=== PATIENT | female | born 1985 | race American Indian/Alaskan Native ===

== ENCOUNTER → 2021-11-10 15:49 | Outpatient (CLI) | payer OTHER, SELFPAY ==
[2021-11-10 16:55] LABS: HCG Quantitative /Beta subunit < 2.4 mIU/mL; Prolactin 11.1 ng/mL (3.0-18.6)
[2021-11-10 17:06] LABS: Follicle Stimulating Hormone 6.56 mIU/mL
[2021-11-10 17:18] LABS: Thyroid Stimulating Hormone 0.282 uIU/mL (0.47-4.68)
[2021-11-12 13:36] LABS: Estriol <0.1 ng/mL (.)
[2021-11-13 16:40] LABS: Free T4, Direct Thyroxine 1.66 ng/dL (0.78-2.19)
[2021-11-13 16:57] LABS: Estradiol, Total 58.5 pg/mL
== END ==
PROVIDERS: PCP Registered Nurse; Referring Provider Nurse Practitioner Obstetrics & Gynecology; Visit Provider Nurse Practitioner Obstetrics & Gynecology
DX: N91.1 Secondary amenorrhea (principal)
CPT/HCPCS: 36415; 82670; 82677; 83001; 84146; 84439; 84443; 84702

== ENCOUNTER → 2023-11-26 16:18 | Outpatient (CLI) | payer OTHER, SELFPAY ==
--- NOTE | 2023-11-26 16:20 | DI.RAD.S_ITS ---
PROCEDURE: XR SHOULDER RT MIN 2V INDICATIONS: LS OF RT SHOULDER TECHNIQUE: 3 views of the shoulder were acquired. COMPARISON: None. FINDINGS: Bones: No fractures or dislocations. Mild acromioclavicular joint osteoarthritis is seen. No suspicious bony lesions. Visualized ribs appear intact. Soft tissues: No suspicious soft tissue calcifications. IMPRESSION: Mild acromioclavicular joint osteoarthritis. No shoulder fracture or dislocation. No gross soft tissue abnormalities. Dictated by: Андрей Montenegro M.D. on 11/26/2023 at 17:05 Approved by: Андрей Montenegro M.D. on 11/26/2023 at 17:06
== END ==
PROVIDERS: PCP Registered Nurse; Referring Provider Registered Nurse; Visit Provider Registered Nurse
DX: M19.011 Primary osteoarthritis, right shoulder (principal); M75.41 Impingement syndrome of right shoulder
CPT/HCPCS: 73030

== ENCOUNTER → 2024-05-04 16:39 | Outpatient (CLI) | payer OTHER, SELFPAY ==
[2024-05-04 19:09] LABS: HCG Quantitative /Beta subunit 205.01 mIU/mL
== END ==
LOC: LAB 16:40
PROVIDERS: PCP Registered Nurse; Referring Provider Registered Nurse; Visit Provider Registered Nurse
DX: N91.2 Amenorrhea, unspecified (principal)
CPT/HCPCS: 36415; 84702

== ENCOUNTER 2024-05-20 19:31 | Emergency (ER) | payer OTHER, SELFPAY ==
[2024-05-20 20:05] VITALS: BP 141/81; PULSE 87; RESP 16; TEMP 36.2; O2SAT 100; BMI 38.0
--- NOTE | 2024-05-20 20:15 | EKG_ITS ---
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
[2024-05-20 21:49] LABS: Add Manual Diff / Slide Review NO; Basophils Absolute Auto 100 /uL (0-100); Basophils Percent Auto 0.7 % (0-2); Eosinophils Absolute Auto 100 /uL (0-450); Eosinophils Percent Auto 0.6 % (2-4); Hematocrit 36.5 % (36-46); Hemoglobin 11.5 g/dL (12.0-16.0); Lymphocytes Absolute Auto 2100 /uL (1100-4500); Lymphocytes Percent Auto 14.9 % (25-40); Mean Corpuscular HGB Conc 31.5 % (30-36); Mean Corpuscular Hemoglobin 22.1 PG (26-34); Mean Corpuscular Volume 70.1 fL (80-100); Monocytes Absolute Auto 700 /uL (0-900); Monocytes Percent Auto 5.1 % (3-14); Neutrophils Absolute Auto 11100 /uL (1500-7000); Neutrophils Percent Auto 78.7 % (50-75); Platelet Count 443 X10^3/uL (150-400); Red Cell Distribution Width 16.9 % (11.6-14.8); White Blood Cell Count 14.2 X10^3/uL (4.5-11.0)
[2024-05-20 22:03] LABS: Alanine Aminotransferase 14 IU/L (<35); Albumin 4.2 g/dL (3.5-5.0); Albumin Globulin Ratio 1.3 (1.0-2.8); Alkaline Phosphatase 61 U/L (38-126); Aspartate Aminotransferase 22 IU/L (14-36); Bilirubin Total 0.4 mg/dL (0.2-1.3); Blood Urea Nitrogen 5 mg/dL (7-17); Calcium 9.1 mg/dL (8.4-10.2); Carbon Dioxide 24 mmol/L (22-32); Chloride 104 mmol/L (98-107); Estimated Glomerular Filt Rate > 60 mL/min (>60); Globulin 3.2 g/dL (1.7-4.1); Glucose 109 mg/dL (70-100); HEMOLYSIS < 15 (0-50); Lipase 139 U/L (23-300); Magnesium 1.8 mg/dL (1.6-2.3); Sodium 134 mmol/L (137-145); Total Protein 7.4 g/dL (6.3-8.2)
--- NOTE | 2024-05-20 22:36 | PC.NURSE ---
Pt reports she developed sudden nausea and rapid heart rate this afternoon. She was sitting down and out of blue, felt her heart rate accelerated, was sob, with nausea and wretching. Episode lasted approximately one hour. Fitbit reproted HR 115 at rest. She also reported she took her bp at home and was elevated. Was taken off her her htn meds a couple months ago by pcm after loosing weight, Reports she has been on HTN meds most of her adult hemphill. Pt currently 10 weeks and has not been sleeping well. BM today. Has not been feeling unwell over past day.
[2024-05-20 22:42] VITALS: BP 152/98; PULSE 82; RESP 16; O2SAT 100
[2024-05-20 22:44] LABS: HCG Quantitative /Beta subunit 41480 mIU/mL
--- NOTE | 2024-05-20 23:02 | ED_ITS ---
HPI - General Adult General Chief complaint: Hypertension Stated complaint: heart palpitations, HBP, 10 wks Time Seen by Provider: 05/20/24 22:26 Source: patient Mode of arrival: Ambulatory History of Present Illness HPI narrative: Patient is a 38-year-old female. She was a at approximately 10 weeks EGA. She had a miscarriage earlier this year. She does have a history of high blood pressure. Has been on blood pressure medications in the past but prior to becoming she lost some weight and was able to come off of all blood pressure medicines. She states earlier today she was having episodes where she feels like her heart was beating fast and skipping beats. No chest pain. No lightheadedness. No shortness of breath. She was no abdominal pain, vaginal bleeding, loss of fluid, cramping, urinary symptoms. Lower extremity swelling. She states that she does take her blood pressure occasionally at home and it does range anywhere from the 130 systolic to 150 systolic range. Related Data Home Medications Medication Instructions Recorded Confirmed metformin 500 mg tablet 500 mg PO DAILY 01/12/24 01/12/24 trazodone 100 mg tablet 100 mg PO DAILY 01/12/24 01/12/24 Previous Rx's Medication Instructions Recorded escitalopram oxalate 20 mg tablet 20 mg PO QDAY #90 tabs 04/30/16 levothyroxine 100 mcg tablet 100 mcg PO QAM #90 tabs 04/30/16 omeprazole 40 mg capsule,delayed 40 mg PO QDAY #90 caps 02/23/17 release progesterone micronized 100 mg 100 mg PO BID #60 caps 01/12/24 capsule Allergies Allergy/AdvReac Type Severity Reaction Status Date / Time No Known Drug Allergies Allergy Verified 05/20/24 20:05 Review of Systems Review of Systems ROS Unobtainable: All systems reviewed & are unremarkable except as noted in HPI and below Patient History Surgical History (Updated 10/19/17 @ 05:37 by Conversion Provider) History of third molar tooth extraction Family History (Updated 12/23/14 @ 00:00 by Conversion Provider) Father Age: 67 Hypertension High cholesterol Grandmother Heart disease Hypertension Stroke Grandmother Diabetes mellitus Social History Smoking Status: Never smoker Smoking Status: Never smoker Substance Use Type: does not use Exam Initial Vital Signs Initial Vital Signs: Vital Signs Temperature 97.2 F L 05/20/24 20:05 Pulse Rate 87 05/20/24 20:05 Respiratory Rate 16 05/20/24 20:05 Blood Pressure 141/81 H 05/20/24 20:05 Pulse Oximetry 100 05/20/24 20:05 Oxygen Delivery Method Room Air 05/20/24 20:05 Const General: cooperative, comfortable and No ill appearing [facility] Head: normal to inspection and normocephalic Resp Effort & Inspection: normal respiratory effort Auscultation: clear to auscultation bilaterally Cardio Rate: regular rate Rhythm: regular rhythm GI Inspection: non-distended Skin General: no rashes or lesions noted Neuro General: patient alert, patient awake and moves all extremities Extrem General: normal to inspection Course Orders Ordered: ED Orders 05/20/24 20:03 EKG-12 Lead Stat 05/20/24 21:33 ABO RH Type Stat Complete Blood Count AUTO DIFF Stat Comprehensive Metabolic Panel Stat HCG Quantitative /Beta subunit Stat Lipase Stat Magnesium Stat Vital Signs Vital signs: Vital Signs - 8 hr 05/20/24 22:42 Pulse Rate 82 Respiratory Rate 16 Blood Pressure 152/98 H Pulse Oximetry 100 Oxygen Delivery Method Room Air Medical Decision Making Lab Data Lab results reviewed: Yes I reviewed the patient's lab results. 05/20/24 21:33 05/20/24 21:33 Labs: Lab Results 05/20/24 Range/Units 21:33 WBC 14.2 H (4.5-11.0) X10^3/uL RBC 5.20 (4.0-5.2) X10^6/uL Hgb 11.5 L (12.0-16.0) g/dL Hct 36.5 (36-46) % MCV 70.1 L (80-100) fL MCH 22.1 L (26-34) PG MCHC 31.5 (30-36) % RDW 16.9 H (11.6-14.8) % Plt Count 443 H (150-400) X10^3/uL Neut % (Auto) 78.7 H (50-75) % Lymph % (Auto) 14.9 L (25-40) % [place] % (Auto) 5.1 (3-14) % Eos % (Auto) 0.6 L (2-4) % Baso % (Auto) 0.7 (0-2) % Neut # (Auto) 37238 H (6308-3259) /uL Lymph # (Auto) 2100 (3306-2450) /uL [place] # (Auto) 700 (0-900) /uL Eos # (Auto) 100 (0-450) /uL Baso # (Auto) 100 (0-100) /uL Sodium 134 L (137-145) mmol/L Potassium 4.0 (3.4-5.1) mmol/L Chloride 104 (98-107) mmol/L Carbon Dioxide 24 (22-32) mmol/L BUN 5 L (7-17) mg/dL Creatinine 0.71 (0.52-1.04) mg/dL Estimated GFR > 60 (>60) mL/min BUN/Creatinine Ratio 7.0 (6-22) Glucose 109 H (70-100) mg/dL Calcium 9.1 (8.4-10.2) mg/dL Magnesium 1.8 (1.6-2.3) mg/dL Total Bilirubin 0.4 (0.2-1.3) mg/dL AST 22 (14-36) IU/L ALT 14 (<35) IU/L Alkaline Phosphatase 61 (38-126) U/L Total Protein 7.4 (6.3-8.2) g/dL Albumin 4.2 (3.5-5.0) g/dL Globulin 3.2 (1.7-4.1) g/dL Albumin/Globulin Ratio 1.3 (1.0-2.8) Lipase 139 (23-300) U/L HCG, Quant 49858 mIU/mL Blood Type B Positive Urine Dip Bedside Urine Glucose Negative Bedside Urine Bilirubin - Negative Bedside Urine Ketone - Negative Urine Specific [place] 1.010 Bedside Urine Occult Blood - Negative Bedside Urine pH 6.0 Bedside Urine Protein - Negative Bedside Urine Urobilinogen - Negative Bedside Urine Nitrite - Negative Bedside Urine Leukocytes - Negative Esterase Point of care testing: Urine Dip Bedside Urine Glucose Negative Bedside Urine Bilirubin - Negative Bedside Urine Ketone - Negative Urine Specific [place] 1.010 Bedside Urine Occult Blood - Negative Bedside Urine pH 6.0 Bedside Urine Protein - Negative Bedside Urine Urobilinogen - Negative Bedside Urine Nitrite - Negative Bedside Urine Leukocytes - Negative Esterase ECG Data Attestation: I personally reviewed and interpreted this ECG as follows: Interpretation: Sinus rhythm Ventricular rate 93 Normal axis Normal QRS Normal QTC No ST T wave changes MDM Narrative Medical decision making narrative: Patient was approximately 10 weeks . She was not having an abdominal pain, loss of fluid, cramping, urinary symptoms. No fevers. She has a baseline history of hypertension and has been hypertensive since arrival here in the ER however she has taken her blood pressure at home over the past couple days and it has been into the 130 systolic range. I did talk with her about her high blood pressure. I recommended that she take her blood pressure at home on a regular basis so that she can talk with the the her OB provider or her primary doctor as she may need to be on blood pressure medications. Patient is less than 20 weeks so would not meet criteria for preeclampsia. Her labs are unremarkable except for a slight leukocytosis without specific source of infection found. She was sinus rhythm on her EKG however when I was in the room she did have an episode of frequent PVCs. He does state that she was having some symptoms during this time that did correspond somewhat to the symptoms she was having earlier today. I discussed PVCs with her. Recommended that she talk with her primary doctor or her OB provider about a Holter monitor specifically if her symptoms persist. She was given return precautions and follow-up instructions. She expressed understanding and agreement with plan. Discharge Plan Departure Patient Disposition: Home Clinical Impression: Palpitations, Hypertension, Instructions: DI for High Blood Pressure, DI for Palpitations Activity Restrictions/Additional Instructions: Continue with the plan of following up with your OB provider. Continue all of your medications as directed. I do recommend that you take your blood pressure at home like we discussed. Return to the emergency department for new or worsening symptoms. Prescriptions: No Action levothyroxine 100 MCG tablet 100 mcg PO QAM Qty: 90 11RF escitalopram oxalate 20 MG tablet 20 mg PO QDAY Qty: 90 1RF omeprazole 40 MG capsule,delayed release(DR/EC) 40 mg PO QDAY Qty: 90 3RF metformin 500 mg tablet 500 mg PO DAILY trazodone 100 mg tablet 100 mg PO DAILY progesterone micronized 100 mg capsule 100 mg PO BID Qty: 60 6RF Rx Instructions: Twice a day after ovulation until next menses or 12 weeks Referrals: Randee Mcclure ARNP [Primary Care Provider] - Stand Alone Forms: Patient Portal/API/Survey
== END 2024-05-20 23:13 | disposition home or self-care (01) ==
PROVIDERS: Emergency Provider Emergency Medicine; PCP Registered Nurse
DX: O16.1 Unspecified maternal hypertension, first trimester (principal); R00.2 Palpitations; O26.891 Other specified pregnancy related conditions, first trimester; Z3A.10 10 weeks gestation of pregnancy
CPT/HCPCS: 36415; 80053; 81003; 83690; 83735; 84702; 85025; 86900; 86901; 93005; 99283; 99284

== ENCOUNTER 2024-05-28 10:44 | Emergency (ER) | payer OTHER, SELFPAY ==
[2024-05-28] VITALS (11 sets, daily range): BP systolic 134–183; BP diastolic 81–100; PULSE 83–114; RESP 20; TEMP 37.1; O2SAT 99–100; BMI 32.8
[2024-05-28 11:13] LABS: Add Manual Diff / Slide Review NO; Basophils Absolute Auto 200 /uL (0-100); Basophils Percent Auto 1.1 % (0-2); Eosinophils Absolute Auto 100 /uL (0-450); Eosinophils Percent Auto 0.5 % (2-4); Hematocrit 39.4 % (36-46); Hemoglobin 12.3 g/dL (12.0-16.0); Lymphocytes Absolute Auto 1600 /uL (1100-4500); Lymphocytes Percent Auto 9.8 % (25-40); Mean Corpuscular HGB Conc 31.3 % (30-36); Mean Corpuscular Hemoglobin 22.2 PG (26-34); Mean Corpuscular Volume 70.9 fL (80-100); Monocytes Absolute Auto 900 /uL (0-900); Monocytes Percent Auto 5.3 % (3-14); Neutrophils Absolute Auto 13400 /uL (1500-7000); Neutrophils Percent Auto 83.3 % (50-75); Platelet Count 541 X10^3/uL (150-400); Red Blood Cell Count 5.56 X10^6/uL (4.0-5.2); Red Cell Distribution Width 17.6 % (11.6-14.8); White Blood Cell Count 16.1 X10^3/uL (4.5-11.0)
--- NOTE | 2024-05-28 11:14 | EKG_ITS ---
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
[2024-05-28 11:19] LABS: Prothrombin Time 11.7 SECONDS (9.4-12.5)
[2024-05-28 11:22] LABS: Ictotest Urine Negative (Negative)
[2024-05-28 11:23] LABS: Alanine Aminotransferase 20 IU/L (<35); Albumin 4.7 g/dL (3.5-5.0); Albumin Globulin Ratio 1.3 (1.0-2.8); Alkaline Phosphatase 69 U/L (38-126); Aspartate Aminotransferase 28 IU/L (14-36); BUN Creatinine Ratio 9.1 (6-22); Bilirubin Total 0.6 mg/dL (0.2-1.3); Blood Urea Nitrogen 7 mg/dL (7-17); Calcium 9.9 mg/dL (8.4-10.2); Carbon Dioxide 25 mmol/L (22-32); Chloride 99 mmol/L (98-107); Estimated Glomerular Filt Rate > 60 mL/min (>60); Globulin 3.6 g/dL (1.7-4.1); Glucose 109 mg/dL (70-100); HEMOLYSIS < 15 (0-50); Lipase 115 U/L (23-300); Potassium 3.6 mmol/L (3.4-5.1); Sodium 134 mmol/L (137-145); Total Protein 8.3 g/dL (6.3-8.2)
[2024-05-28] MEDS: ONDANSETRON 4 MG/2 ML INJ IV (11:23)
--- NOTE | 2024-05-28 11:24 | ED.NAVMDI ---
HPI - Nausea/Vomiting/Diarrhea General Chief complaint: Nausea/Vomiting/Diarrhea Stated complaint: 10wks , persistent vomiting Time Seen by Provider: 05/28/24 11:07 Source: patient, RN notes reviewed and old records reviewed Mode of arrival: Family Vehicle Limitations: no limitations History of Present Illness HPI Narrative: 38-year-old female approximately 10 weeks per patient presents with complaint of vomiting all week and hypertension. Patient states she was here on the 30 for heart palpitations and high blood pressure. States she has had occasional palpitations and noted that she will feel little short of breath when that is happening. She also notes she has been vomiting all week we will be quite nauseated. She has tried Zofran had a let dose at 5:00 a.m. this morning. But about 9 was trying to eat and threw up everything that she would eaten this morning. She states has a little bit of a headache, she has been throwing up enough that is sometimes her muscles feel spasming and she feels tight in her neck. She denies any chest pain or active shortness of breath. No abdominal back or flank pain. Has been little bit constipated but notes she has not been eating much and has been taking Zofran. Denies any new urinary symptoms no dysuria or urgency. She does note a little bit of frequency. Denies any pelvic pain. No vaginal spotting or bleeding. Patient notes she was treated for hypertension in the past but lost weight and was not requiring medication. She is on levothyroxine, metformin, duloxetine and BuSpar. Patient has been taking vitamin B6 for nausea with . States no prior surgeries. No known drug allergies. No tobacco, alcohol or recreational drugs. Did follow up this week primary care visit and was told her blood pressure was slightly elevated but did not require starting a medication. She has follow up appointment tomorrow with consulting technical manager with Dr. Gaines to establish care. Related Data Home Medications Medication Instructions Recorded Confirmed metformin 500 mg tablet 500 mg PO DAILY 01/12/24 05/24/24 aspirin 81 mg tablet,delayed 81 mg PO DAILY 05/24/24 05/24/24 release buspirone 15 mg tablet 15 mg PO BID 05/24/24 05/24/24 doxylamine 10 mg-pyridoxine (vit 1 tab PO BID PRN 05/24/24 05/24/24 B6) 10 mg tablet,delayed release (Diclegis) duloxetine 60 mg capsule,delayed 60 mg PO DAILY 05/24/24 05/24/24 release levothyroxine 75 mcg tablet 75 mcg PO DAILY 05/24/24 05/24/24 Previous Rx's Medication Instructions Recorded omeprazole 40 mg capsule,delayed 40 mg PO QDAY #90 caps 02/23/17 release progesterone micronized 100 mg 100 mg PO BID #60 caps 01/12/24 capsule ondansetron 4 mg disintegrating 4 mg PO Q6H PRN nausea and 05/26/24 tablet vomiting #30 tabs Allergies Allergy/AdvReac Type Severity Reaction Status Date / Time No Known Drug Allergies Allergy Verified 05/24/24 14:07 Review of Systems Review of Systems ROS Unobtainable: All systems reviewed & are unremarkable except as noted in HPI and below Patient History Medical History Asthma Low serum progesterone Hypertension Surgical History History of third molar tooth extraction Family History Father Age: 67 Hypertension High cholesterol Cancer Family estrangement Grandmother Heart disease Hypertension Stroke Alzheimer's dementia Alcoholism Grandmother Diabetes mellitus Mother Diabetes mellitus Fibromyalgia Osteoarthritis Grandfather Osteoarthritis Alcoholism Brother Klinefelter syndrome Uncle Hyperlipidemia Hypertension Uncle Sturge-Loya syndrome Social History marital status: number of children: 1 (recently adopted infant daughter) household members: spouse and children lives independently: Yes caregiver/support person: Yes housing: house pets and animals: Yes (dogs) education level: college (some college) occupational status: employed (works from home) current occupational exposures/hazards: No special abisai needs: No travel history: over 6 months ago seatbelt use: always water heater temp set < 120 deg: Yes working smoke detector in home: Yes fire extinguisher in home: Yes carbon monox detector in home: Yes firearms in home: Yes firearms unloaded and locked: Yes do you feel safe at home: Yes Smoking Status: Never smoker second hand exposure: No alcohol intake: former (rarely when not ) substance use type: does not use during the past year weight has: decreased > 10 lbs (intentional w/ meds) well-balanced diet: rarely or never daily servings fruits/ve-1 caffeine: Yes (discussed, asked pt to stop drinking [place] and other energy drinks) Type(s) of exercise: walking Smoking Status: Never smoker Exam Narrative Exam Narrative: GENERAL: Alert and oriented x three, well-appearing female in mild distress. HEENT: Head normocephalic, atraumatic, EOMI, pupils reactive, face symmetric, moist mucous membranes NECK: Supple, full range of motion CARDIOVASCULAR: Regular rate and rhythm without murmurs, rubs or gallops. No JVD. No edema bilaterally. RESPIRATORY: Breath sounds equal bilaterally, no wheezes rales or rhonchi. ABDOMEN: Soft, nontender. Normoactive bowel sounds all 4 quadrants. No guarding or rebound, rigidity, no mass : No CVA tenderness EXTREMITIES: Normal range of motion, no clubbing or edema. Neurovascularly intact NEUROLOGICAL: Cranial nerves II through XII grossly intact. Moving all extremities SKIN: Warm, dry, no petechiae, no rashes or lesions. Initial Vital Signs Initial Vital Signs: Vital Signs Pulse Oximetry 100 05/28/24 10:51 Course Orders Ordered: ED Orders 05/28/24 10:48 Ictotest Urine Stat 05/28/24 10:57 EKG-12 Lead Stat 05/28/24 11:00 Complete Blood Count AUTO DIFF Stat Comprehensive Metabolic Panel Stat HCG Quantitative /Beta subunit Stat Lipase Stat Prothrombin Time INR Stat 05/28/24 11:39 US OB <= 14 weeks fetus Stat Discontinued Medications Sodium Chloride (Normal Saline 0.9%) 500 mls @ 1,000 mls/hr IV BOLUS ONE Stop: 05/28/24 12:08 Last Infusion: 05/28/24 12:21 Dose: Infused Documented By: Admin: 05/28/24 11:44 Dose: 1,000 mls/hr Documented By: Ondansetron HCl (Ondansetron 4 Mg/2 Ml Inj) 4 mg IV NOW PRN PRN Reason: Nausea And Vomiting Last Admin: 05/28/24 11:23 Dose: 4 mg Documented By: Ondansetron HCl (Ondansetron 4 Mg Odt) 4 mg PO NOW PRN PRN Reason: Nausea And Vomiting Vital Signs Vital signs: Vital Signs - 8 hr 05/28/24 10:51 05/28/24 10:52 05/28/24 10:52 Temperature Pulse Rate 114 H Respiratory Rate Blood Pressure 183/100 H Pulse Oximetry 100 100 Oxygen Delivery Method 05/28/24 10:55 05/28/24 11:00 05/28/24 11:04 Temperature 98.8 F Pulse Rate 110 H 99 H Respiratory Rate 20 Blood Pressure 180/100 H 134/85 Pulse Oximetry 100 100 Oxygen Delivery Method Room Air 05/28/24 11:04 05/28/24 11:29 05/28/24 11:30 Temperature Pulse Rate 101 H 100 H Respiratory Rate Blood Pressure 151/88 H Pulse Oximetry 100 99 Oxygen Delivery Method 05/28/24 11:30 05/28/24 12:00 05/28/24 12:00 Temperature Pulse Rate 94 H 83 Respiratory Rate Blood Pressure 147/81 H Pulse Oximetry 100 99 Oxygen Delivery Method 05/28/24 13:05 05/28/24 13:30 05/28/24 14:00 Temperature Pulse Rate 96 H 91 H 93 H Respiratory Rate Blood Pressure 147/81 H Pulse Oximetry 100 100 100 Oxygen Delivery Method MDM - Nausea/Vomiting/Diarrhea Lab Data 05/28/24 11:00 05/28/24 11:00 Labs: Lab Results 05/28/24 05/28/24 Range/Units 10:48 11:00 WBC 16.1 H (4.5-11.0) X10^3/uL RBC 5.56 H (4.0-5.2) X10^6/uL Hgb 12.3 (12.0-16.0) g/dL Hct 39.4 (36-46) % MCV 70.9 L (80-100) fL MCH 22.2 L (26-34) PG MCHC 31.3 (30-36) % RDW 17.6 H (11.6-14.8) % Plt Count 541 H (150-400) X10^3/uL Neut % (Auto) 83.3 H (50-75) % Lymph % (Auto) 9.8 L (25-40) % [place] % (Auto) 5.3 (3-14) % Eos % (Auto) 0.5 L (2-4) % Baso % (Auto) 1.1 (0-2) % Neut # (Auto) 81072 H (7391-5016) /uL Lymph # (Auto) 1600 (8677-0413) /uL [place] # (Auto) 900 (0-900) /uL Eos # (Auto) 100 (0-450) /uL Baso # (Auto) 200 H (0-100) /uL PT 11.7 (9.4-12.5) SECONDS INR 1.0 (0.9-1.3) Sodium 134 L (137-145) mmol/L Potassium 3.6 (3.4-5.1) mmol/L Chloride 99 (98-107) mmol/L Carbon Dioxide 25 (22-32) mmol/L BUN 7 (7-17) mg/dL Creatinine 0.77 (0.52-1.04) mg/dL Estimated GFR > 60 (>60) mL/min BUN/Creatinine Ratio 9.1 (6-22) Glucose 109 H (70-100) mg/dL Calcium 9.9 (8.4-10.2) mg/dL Total Bilirubin 0.6 (0.2-1.3) mg/dL AST 28 (14-36) IU/L ALT 20 (<35) IU/L Alkaline Phosphatase 69 (38-126) U/L Total Protein 8.3 H (6.3-8.2) g/dL Albumin 4.7 (3.5-5.0) g/dL Globulin 3.6 (1.7-4.1) g/dL Albumin/Globulin Ratio 1.3 (1.0-2.8) Lipase 115 (23-300) U/L HCG, Quant 324543 mIU/mL Ur Bilirubin Confirm Negative (Negative) Point of Care Testing Test Results Positive Urine Dip Bedside Urine Glucose Negative Bedside Urine Bilirubin + 1 Bedside Urine Ketone +/- 5 Urine Specific [place] 1.020 Bedside Urine Occult Blood - Negative Bedside Urine pH 6.0 Bedside Urine Protein - Negative Bedside Urine Urobilinogen - Negative Bedside Urine Nitrite - Negative Bedside Urine Leukocytes - Negative Esterase Imaging Data US - OB: Radiologist's Impression: Close Ultrasound (Signed) Jesus Francisco - 05/28/24 Shoulder X-Ray (Signed) Андрей Montenegro - 11/26/[address] [place] [address] Ultrasound Report Signed Patient: Alba Lowe MR#: [id number] : 1985 Acct:[id number] Age/Sex: 38 / F Date of Service: 05/28/24 Loc: ED Accession Number: [id number] Procedure: US OB <= 14 weeks fetus Ordering Provider: Nicole Hernandez D.O. PROCEDURE: US OB <= 14 WEEKS FETUS INDICATIONS: vomiting, OUTSIDE/PRIOR DATING DATA: Last menstrual period (LMP): 03/12/2024. LMP-based estimated date of delivery (LAVELL): 12/17/2024. First dating scan (date and location): 05/28/2024. Estimated date of delivery (LAVELL) from first dating scan: 01/07/2025. TECHNIQUE: Real-time scanning was performed of the fetus and maternal pelvic organs, with image documentation. Endovaginal scanning was also performed to better visualize the fetus and maternal ovaries. COMPARISON: None. FINDINGS: Embryo: [place]-rump length 1.6 cm corresponds with an 8 week 0 day gestation. EGA by dates 11 week 0 day gestation. Heart rate: 162 Maternal organs: Ovaries right corpus luteum cyst. IMPRESSION: Single live intrauterine corresponds with an 8 week 0 day gestation by ultrasound and 11 week 0 day by dates Approved by: Jesus Francisco M.D. on 05/28/2024 at 12:50 ECG Data Attestation: I personally reviewed and interpreted this ECG as follows: Prior ECG tracings: available for review Interpretation: Normal sinus rhythm rate of 100 MO 142 QRS 80 QTC of [address] elevation or depression noted. Patient has prior from 05/20/2024. MDM Narrative Medical decision making narrative: 38-year-old female who is approximately 10-11 weeks by dates. Patient presents with nausea vomiting during her . Notes she was hypertensive at home as well. Patient was quite hypertensive initially improved to 150/88 recheck when I evaluated the patient. Labs show white count of 16.1 platelets of 541 with a hemoglobin of 12.3. Patient was white count of 14 on the 20 of May with platelets of 443 no priors for comparison. Patient has a little bit microcytic. Predominance of neutrophils on both. INR is 1. Sodium is 134 potassium 3.6 chloride 99 CO2 is 25 with a BUN of 7 creatinine of 0.77 glucose of 109 calcium is 9.9 bilirubin is 0.6 with a AST 20 and ALT 20 alk-phos is 69 and a lipase of 115. Total protein is 8.3. HCG is 222693 EKG shows no acute change Point of care urine, 1+ bilirubin, positive ketones negative for blood negative for nitrates and leukocyte esterase. Urine is positive OB ultrasound single live intrauterine 8 weeks 0 days by ultrasound 11 weeks by dates. Heart rates 162. Patient received 4 mg Zofran, 500 mL normal saline. Patient tolerating fluids. Had oral challenge was solids. Patient's blood pressure improved here in the department without any interventions. Patient is tolerating orals in the department. Has a appointment tomorrow with OBGYN. Discussed can try gian to see if that is helpful as well. She was already taking B6/doxylamine and has Zofran at home. Discharge Plan Departure Patient Disposition: Home Clinical Impression: Vomiting during Activity Restrictions/Additional Instructions: Follow up with your appointment tomorrow with Dr. Gaines. Continue your current medications as prescribed. Please return for fevers, new or worsening chest pain or shortness of breath, intractable vomiting, lightheadedness or passing out, new abdominal pain, vaginal bleeding or spotting or other new or concerning changes. Prescriptions: No Action omeprazole 40 MG capsule,delayed release(DR/EC) 40 mg PO QDAY Qty: 90 3RF ondansetron 4 mg tablet,disintegrating 4 mg PO Q6H PRN (Reason: nausea and vomiting) Qty: 30 0RF duloxetine 60 mg capsule,delayed release(DR/EC) 60 mg PO DAILY aspirin 81 mg tablet,delayed release (DR/EC) 81 mg PO DAILY buspirone 15 mg tablet 15 mg PO BID doxylamine-pyridoxine (vit B6) [Diclegis] 10-10 mg tablet,delayed release (DR/EC) 1 tab PO BID PRN levothyroxine 75 mcg tablet 75 mcg PO DAILY metformin 500 mg tablet 500 mg PO DAILY progesterone micronized 100 mg capsule 100 mg PO BID Qty: 60 6RF Rx Instructions: Twice a day after ovulation until next menses or 12 weeks Referrals: Randee Mcclure ARNP [Primary Care Provider] - Stand Alone Forms: Patient Portal/API/Survey, Work Release Note
--- NOTE | 2024-05-28 11:39 | DI.US.S_ITS ---
PROCEDURE: US OB <= 14 WEEKS FETUS INDICATIONS: vomiting, OUTSIDE/PRIOR DATING DATA: Last menstrual period (LMP): 03/12/2024. LMP-based estimated date of delivery (LAVELL): 12/17/2024. First dating scan (date and location): 05/28/2024. Estimated date of delivery (LAVELL) from first dating scan: 01/07/2025. TECHNIQUE: Real-time scanning was performed of the fetus and maternal pelvic organs, with image documentation. Endovaginal scanning was also performed to better visualize the fetus and maternal ovaries. COMPARISON: None. FINDINGS: Embryo: [place]-rump length 1.6 cm corresponds with an 8 week 0 day gestation. EGA by dates 11 week 0 day gestation. Heart rate: 162 Maternal organs: Ovaries right corpus luteum cyst. IMPRESSION: Single live intrauterine corresponds with an 8 week 0 day gestation by ultrasound and 11 week 0 day by dates Approved by: Jesus Francisco M.D. on 05/28/2024 at 12:50
[2024-05-28] MEDS: SODIUM CHLORIDE 0.9% 500 ML 1000 ML IV (11:44)
[2024-05-28 12:39] LABS: HCG Quantitative /Beta subunit 103160 mIU/mL
== END 2024-05-28 14:24 | disposition home or self-care (01) ==
PROVIDERS: Emergency Provider Emergency Medicine; PCP Registered Nurse
DX: O21.9 Vomiting of pregnancy, unspecified (principal); O16.1 Unspecified maternal hypertension, first trimester; Z3A.11 11 weeks gestation of pregnancy
CPT/HCPCS: 36415; 76801; 80053; 81003; 81025; 83690; 84702; 85025; 85610; 93005; 93010; 96361; 96374; 99284; J2405

== ENCOUNTER 2024-06-03 11:46 | Emergency (ER) | payer OTHER, SELFPAY ==
[2024-06-03 11:52] VITALS: BP 165/98; PULSE 94; RESP 16; TEMP 36.1; O2SAT 98; BMI 36.8
[2024-06-03] MEDS: SODIUM CHLORIDE 0.9% 500 ML 1000 ML IV (14:13)
[2024-06-03 14:29] LABS: Add Manual Diff / Slide Review NO; Basophils Absolute Auto 100 /uL (0-100); Basophils Percent Auto 0.3 % (0-2); Eosinophils Absolute Auto 100 /uL (0-450); Eosinophils Percent Auto 0.4 % (2-4); Hematocrit 37.7 % (36-46); Hemoglobin 11.9 g/dL (12.0-16.0); Lymphocytes Absolute Auto 2200 /uL (1100-4500); Lymphocytes Percent Auto 14.1 % (25-40); Mean Corpuscular HGB Conc 31.5 % (30-36); Mean Corpuscular Hemoglobin 22.5 PG (26-34); Mean Corpuscular Volume 71.3 fL (80-100); Monocytes Absolute Auto 600 /uL (0-900); Neutrophils Absolute Auto 12700 /uL (1500-7000); Neutrophils Percent Auto 81.2 % (50-75); Platelet Count 498 X10^3/uL (150-400); Red Blood Cell Count 5.28 X10^6/uL (4.0-5.2); White Blood Cell Count 15.6 X10^3/uL (4.5-11.0)
--- NOTE | 2024-06-03 14:41 | ED.PREGNANCY ---
HPI - <Lisa Otero PA-C - Last Filed: 06/03/24 20:38> General Chief complaint: Abdominal Pain Stated complaint: 9 wks no bm for 1 wk, nausea, vomiting Time Seen by Provider: 06/03/24 13:51 Source: patient Mode of arrival: Ambulatory History of Present Illness HPI Narrative: 38-year-old woman who is 9 weeks , presents with concern for constipation for the past week. She has been dealing with a lot of nausea and vomiting for over a few weeks in this and has been taking Zofran for this as well as pyridoxine. In the past week she has been drinking a lot of electrolyte solutions and has had some trouble keeping fluids down; she has been eating less as well as this seems to trigger nausea and vomiting. She states it has been at least a week since she has had any bowel movement. She does state that she feels there is ?something there? and says that she does feel for the last few days that there is rectal pressure and she has having an urge to have a bowel movement but it has not been able to. She has tried a few home enemas, tried MiraLax yesterday for the 1st time, and in the last 3 days she has tried multiple suppositories. She has tried to increase her fluid intake but it has been difficult with her nausea and vomiting. She also endorses some upper abdominal discomfort. She endorses increased problems with heartburn and reflux in the last few weeks as well states that she had to stop taking her omeprazole due to and has transitioned over to famotidine. She denies any urinary symptoms such as urgency, frequency, pain with urination. She states she has had some cramping sensations in her upper body shoulders and arms recently. Denies fevers, chills, or other symptoms. Related Data Home Medications Medication Instructions Recorded Confirmed metformin 500 mg tablet 500 mg PO DAILY 01/12/24 05/29/24 aspirin 81 mg tablet,delayed 81 mg PO DAILY 05/24/24 05/29/24 release buspirone 15 mg tablet 15 mg PO BID 05/24/24 05/29/24 duloxetine 60 mg capsule,delayed 60 mg PO DAILY 05/24/24 05/29/24 release levothyroxine 75 mcg tablet 75 mcg PO DAILY 05/24/24 05/29/24 Previous Rx's Medication Instructions Recorded omeprazole 40 mg capsule,delayed 40 mg PO QDAY #90 caps 02/23/17 release ondansetron 4 mg disintegrating 4 mg PO Q6H PRN nausea and 05/26/24 tablet vomiting #30 tabs promethazine 12.5 mg tablet 12.5 mg PO Q4-6H PRN nausea and 06/01/24 vomiting #30 tabs labetalol 100 mg tablet 100 mg PO BID #60 tabs 06/08/24 doxylamine 10 mg-pyridoxine (vit 1 tab PO BID #30 tabs 06/12/24 B6) 10 mg tablet,delayed release (Diclegis) progesterone micronized 100 mg 100 mg PO BID #60 caps 06/12/24 capsule Allergies Allergy/AdvReac Type Severity Reaction Status Date / Time No Known Drug Allergies Allergy Verified 06/12/24 10:59 Review of Systems <Lisa Otero PA-C - Last Filed: 06/03/24 20:38> Review of Systems Narrative: See HPI Exam <Lisa Otero PA-C - Last Filed: 06/03/24 20:38> Narrative Exam Narrative: GENERAL: [38] year old patient appears stated age. Well-developed patient, in mild distress. HEAD: Atraumatic. Normocephalic. EYES: Pupils equal round and reactive. Extraocular motions intact. No scleral icterus. No injection or drainage. ENT: Nose without bleeding, purulent drainage. Airway patent. NECK: Trachea midline. Non tender CARDIOVASCULAR: Regular rate and rhythm without murmurs, gallops, or rubs. RESPIRATORY: Clear to auscultation. Breath sounds equal bilaterally. No wheezes, rales, or rhonchi. GASTROINTESTINAL: Abdomen soft, it was right upper quadrant and left upper quadrant tenderness. Negative Jay's sign. Negative McBurney's point tenderness. Negative Rovsing. Mild discomfort with palpation over the low abdomen as well. No CVA tenderness, otherwise Non-tender, nondistended. EXTREMITIES: No edema or joint tenderness. BACK: Nontender without deformity or crepitance. No flank tenderness. NEURO: AOx3. SKIN: No rash or erythema of visible areas Initial Vital Signs Initial Vital Signs: Vital Signs Temperature 97.0 F L 06/03/24 11:52 Pulse Rate 94 H 06/03/24 11:52 Respiratory Rate 16 06/03/24 11:52 Blood Pressure 165/98 H 06/03/24 11:52 Pulse Oximetry 98 06/03/24 11:52 Oxygen Delivery Method Room Air 06/03/24 11:52 <Nicole Hernandez DO - Last Filed: 06/19/24 04:18> Initial Vital Signs Initial Vital Signs: Vital Signs Temperature 97.0 F L 06/03/24 11:52 Pulse Rate 94 H 06/03/24 11:52 Respiratory Rate 16 06/03/24 11:52 Blood Pressure 165/98 H 06/03/24 11:52 Pulse Oximetry 98 06/03/24 11:52 Oxygen Delivery Method Room Air 06/03/24 11:52 Course <Lisa Otero PA-C - Last Filed: 06/03/24 20:38> Orders Ordered: Discontinued Medications Acetaminophen (Acetaminophen 325 Mg Tablet) 650 mg PO NOW ONE Stop: 06/03/24 16:51 Last Admin: 06/03/24 16:56 Dose: 650 mg Documented By: GALEN Sodium Chloride (Normal Saline 0.9%) 500 mls @ 1,000 mls/hr IV BOLUS ONE Stop: 06/03/24 14:20 Last Infusion: 06/03/24 15:11 Dose: Infused Documented By: Admin: 06/03/24 14:13 Dose: 1,000 mls/hr Documented By: JAMMIE Sodium Chloride (Normal Saline 0.9%) 1,000 mls @ 1,000 mls/hr IV BOLUS ONE Stop: 06/03/24 16:07 Last Infusion: 06/03/24 17:06 Dose: Infused Documented By: Admin: 06/03/24 15:12 Dose: 1,000 mls/hr Documented By: SB Lactulose (Lactulose 20 Gm/30 Ml Solution) 20 gm PO NOW ONE Stop: 06/03/24 17:23 Last Admin: 06/03/24 17:48 Dose: 20 gm Documented By: UBALDO Vital Signs Vital signs: Vital Signs - 8 hr 06/03/24 18:01 Temperature 97.5 F L Pulse Rate 98 H Respiratory Rate 16 Blood Pressure 155/105 H Pulse Oximetry 100 Oxygen Delivery Method Room Air <Nicole Hernandez DO - Last Filed: 06/19/24 04:18> Orders Ordered: Discontinued Medications Acetaminophen (Acetaminophen 325 Mg Tablet) 650 mg PO NOW ONE Stop: 06/03/24 16:51 Last Admin: 06/03/24 16:56 Dose: 650 mg Documented By: SPF Sodium Chloride (Normal Saline 0.9%) 500 mls @ 1,000 mls/hr IV BOLUS ONE Stop: 06/03/24 14:20 Last Infusion: 06/03/24 15:11 Dose: Infused Documented By: Admin: 06/03/24 14:13 Dose: 1,000 mls/hr Documented By: JAMMIE Sodium Chloride (Normal Saline 0.9%) 1,000 mls @ 1,000 mls/hr IV BOLUS ONE Stop: 06/03/24 16:07 Last Infusion: 06/03/24 17:06 Dose: Infused Documented By: Admin: 06/03/24 15:12 Dose: 1,000 mls/hr Documented By: SB Lactulose (Lactulose 20 Gm/30 Ml Solution) 20 gm PO NOW ONE Stop: 06/03/24 17:23 Last Admin: 06/03/24 17:48 Dose: 20 gm Documented By: SB Vital Signs Vital signs: Vital Signs - 8 hr 06/03/24 18:01 Temperature 97.5 F L Pulse Rate 98 H Respiratory Rate 16 Blood Pressure 155/105 H Pulse Oximetry 100 Oxygen Delivery Method Room Air MDM - OB/Uterine Contractions <Lisa Otero PA-C - Last Filed: 06/03/24 20:38> Differential Diagnosis Differential diagnosis: Likely other (Constipation and 1st trimester , right upper quadrant pain, elevated bilirubin) Lab Data Attestation: I reviewed the patient's lab results. 06/03/24 14:10 06/03/24 16:37 Labs: Lab Results 06/03/24 06/03/24 06/03/24 Range/Units 14:10 14:10 15:30 WBC 15.6 H (4.5-11.0) X10^3/uL RBC 5.28 H (4.0-5.2) X10^6/uL Hgb 11.9 L (12.0-16.0) g/dL Hct 37.7 (36-46) % MCV 71.3 L (80-100) fL MCH 22.5 L (26-34) PG MCHC 31.5 (30-36) % RDW 18.0 H (11.6-14.8) % Plt Count 498 H (150-400) X10^3/uL Neut % (Auto) 81.2 H (50-75) % Lymph % (Auto) 14.1 L (25-40) % Maverick % (Auto) 4.0 (3-14) % Eos % (Auto) 0.4 L (2-4) % Baso % (Auto) 0.3 (0-2) % Neut # (Auto) 43236 H (3157-9759) /uL Lymph # (Auto) 2200 (4947-4636) /uL Maverick # (Auto) 600 (0-900) /uL Eos # (Auto) 100 (0-450) /uL Baso # (Auto) 100 (0-100) /uL Sodium 131 L (137-145) mmol/L Potassium 5.8 H D (3.4-5.1) mmol/L Chloride 100 (98-107) mmol/L Carbon Dioxide 24 (22-32) mmol/L BUN 5 L (7-17) mg/dL Creatinine 0.60 (0.52-1.04) mg/dL Estimated GFR > 60 (>60) mL/min BUN/Creatinine Ratio 8.3 (6-22) Glucose 89 (70-100) mg/dL Calcium 9.1 (8.4-10.2) mg/dL Total Bilirubin 1.5 H (0.2-1.3) mg/dL AST 84 H (14-36) IU/L ALT 26 (<35) IU/L Alkaline Phosphatase 35 L (38-126) U/L Total Protein 8.5 H (6.3-8.2) g/dL Albumin 4.7 (3.5-5.0) g/dL Globulin 3.8 (1.7-4.1) g/dL Albumin/Globulin Ratio 1.2 (1.0-2.8) Lipase 119 Cancelled (23-300) U/L Urine RBC None seen (0-5/HPF) Urine WBC None seen (0-5/HPF) Ur Squamous Epith Cells None seen (0-5/HPF) Urine Bacteria None seen (None) Ur Culture Indicated? Cult not indicated Vol Urine Centrifuged 10ml (spun) 06/03/24 Range/Units 16:37 WBC (4.5-11.0) X10^3/uL RBC (4.0-5.2) X10^6/uL Hgb (12.0-16.0) g/dL Hct (36-46) % MCV (80-100) fL MCH (26-34) PG MCHC (30-36) % RDW (11.6-14.8) % Plt Count (150-400) X10^3/uL Neut % (Auto) (50-75) % Lymph % (Auto) (25-40) % Maverick % (Auto) (3-14) % Eos % (Auto) (2-4) % Baso % (Auto) (0-2) % Neut # (Auto) (0090-8510) /uL Lymph # (Auto) (8128-9702) /uL Maverick # (Auto) (0-900) /uL Eos # (Auto) (0-450) /uL Baso # (Auto) (0-100) /uL Sodium 131 L (137-145) mmol/L Potassium 3.8 D (3.4-5.1) mmol/L Chloride 102 (98-107) mmol/L Carbon Dioxide 27 (22-32) mmol/L BUN 4 L (7-17) mg/dL Creatinine 0.68 (0.52-1.04) mg/dL Estimated GFR > 60 (>60) mL/min BUN/Creatinine Ratio 5.9 L (6-22) Glucose 79 (70-100) mg/dL Calcium 8.5 (8.4-10.2) mg/dL Total Bilirubin (0.2-1.3) mg/dL AST (14-36) IU/L ALT (<35) IU/L Alkaline Phosphatase (38-126) U/L Total Protein (6.3-8.2) g/dL Albumin (3.5-5.0) g/dL Globulin (1.7-4.1) g/dL Albumin/Globulin Ratio (1.0-2.8) Lipase (23-300) U/L Urine RBC (0-5/HPF) Urine WBC (0-5/HPF) Ur Squamous Epith Cells (0-5/HPF) Urine Bacteria (None) Ur Culture Indicated? Vol Urine Centrifuged Urine Dip Bedside Urine Glucose Negative Bedside Urine Bilirubin - Negative Bedside Urine Ketone ++ 40 Urine Specific [place] 1.015 Bedside Urine Occult Blood - Negative Bedside Urine pH 6.0 Bedside Urine Protein - Negative Bedside Urine Urobilinogen - Negative Bedside Urine Nitrite - Negative Bedside Urine Leukocytes - Negative Esterase Imaging Data US - abdomen: My Impression: Agree with Radiology interpretation Radiologist's Impression: [address] [address] Ultrasound Report Signed Patient: Alba Lowe MR#: [id number] : 1985 Acct:[id number] Age/Sex: 38 / F Date of Service: 06/03/24 Loc: ED Accession Number: [id number] Procedure: US abdomen limited Ordering Provider: Lisa Otero PA-C PROCEDURE: US ABDOMEN LIMITED INDICATIONS: RUQ tenderness. elevated bilirubin 9wk preg TECHNIQUE: Real-time scanning was performed of the abdominal and retroperitoneal organs, with image documentation. COMPARISON: None. FINDINGS: Liver: Liver is normal in size and grossly homogeneous in echotexture. Gallbladder: No gallstones. No wall thickening. No pericholecystic edema. Negative sonographic Jay's sign. Biliary ducts: Intrahepatic bile ducts are non-dilated. Extrahepatic bile duct caliber measures 4 mm. Normal is 6-7 mm or less in diameter, or 10 mm or less post-cholecystectomy. Pancreas: Visualized portions of the pancreas are sonographically normal. Miscellaneous: No free abdominal fluid. An intrauterine gestation with a heart rate of 160 beats per minute is present. IMPRESSION: No evidence of acute cholecystitis. Jaimes intrauterine gestation with heart rate of 160 bpm. Dictated by: Spring Galindo M.D. on 06/03/2024 at 15:01 Approved by: Spring Galindo M.D. on 06/03/2024 at 15:04 [facility] Narrative Medical decision making narrative: 38-year-old female, presents with concern for constipation for 7 days in the setting of persistent nausea with vomiting at 9 weeks of . Seen in this emergency department just under a week ago and at that time seen for nausea and vomiting in . Patient has been keeping fluids down, but concern for 7 days without a bowel movement. Endorses mild low abdominal pain consistent with constipation/discomfort associated with feeling of need to pass a stool. Labs obtained and notable for elevated potassium at 5.8. A repeat of this lab reveals potassium within normal limits which is consistent with her labs obtained 6 days ago. Her bilirubin was also slightly elevated to 1.5 and she had pronounced right upper quadrant tenderness on exam. A right upper quadrant ultrasound was obtained for further evaluation which showed no abnormality--also notable for single live IUP intrauterine seen with heartbeat of 160. Discussed this with the attending physician and advise the patient to follow this lab with her PCP/Ob provider to monitor for possibility of developing cholestasis of . Discussed possibly pursuing an enema however patient has tried 2 of these in the last 24-48 hours at home with no success and declines further attempts today in the emergency department. She has also tried multiple other remedies including large amounts of prune juice and prunes as well as apple juice, multiple rectal suppositories and MiraLax yesterday. Also has been working on dietary changes and trying to increase fluid intake. She received fluid bolus today in the emergency department. We discussed this impaction however she also declines this. Given duration of symptoms and no improvement thus far with therapies, patient is administered lactulose in the emergency department, advised to monitor for stool production within the next 24-48 hours. If she develops new pain, has no stool production or has new concerning symptoms she should seek re-evaluation immediately, otherwise hopefully with improvement of symptoms can continue with MiraLax after this for continued treatment of constipation, and follow up closely with daycare provider. Counseled again regarding dietary changes, advised to cut back on iron containing supplements for the next 3-7 days as this is likely contributing to her symptoms as well. Return precautions provided, follow-up plan discussed, all questions answered. <Nicole Hernandez, DO - Last Filed: 06/19/24 04:18> Lab Data Labs: Lab Results 06/03/24 06/03/24 06/03/24 Range/Units 14:10 14:10 15:30 WBC 15.6 H (4.5-11.0) X10^3/uL RBC 5.28 H (4.0-5.2) X10^6/uL Hgb 11.9 L (12.0-16.0) g/dL Hct 37.7 (36-46) % MCV 71.3 L (80-100) fL MCH 22.5 L (26-34) PG MCHC 31.5 (30-36) % RDW 18.0 H (11.6-14.8) % Plt Count 498 H (150-400) X10^3/uL Neut % (Auto) 81.2 H (50-75) % Lymph % (Auto) 14.1 L (25-40) % Maverick % (Auto) 4.0 (3-14) % Eos % (Auto) 0.4 L (2-4) % Baso % (Auto) 0.3 (0-2) % Neut # (Auto) 79953 H (4876-1767) /uL Lymph # (Auto) 2200 (5080-1962) /uL [place]verick # (Auto) 600 (0-900) /uL Eos # (Auto) 100 (0-450) /uL Baso # (Auto) 100 (0-100) /uL Sodium 131 L (137-145) mmol/L Potassium 5.8 H D (3.4-5.1) mmol/L Chloride 100 (98-107) mmol/L Carbon Dioxide 24 (22-32) mmol/L BUN 5 L (7-17) mg/dL Creatinine 0.60 (0.52-1.04) mg/dL Estimated GFR > 60 (>60) mL/min BUN/Creatinine Ratio 8.3 (6-22) Glucose 89 (70-100) mg/dL Calcium 9.1 (8.4-10.2) mg/dL Total Bilirubin 1.5 H (0.2-1.3) mg/dL AST 84 H (14-36) IU/L ALT 26 (<35) IU/L Alkaline Phosphatase 35 L (38-126) U/L Total Protein 8.5 H (6.3-8.2) g/dL Albumin 4.7 (3.5-5.0) g/dL Globulin 3.8 (1.7-4.1) g/dL Albumin/Globulin Ratio 1.2 (1.0-2.8) Lipase 119 Cancelled (23-300) U/L Urine RBC None seen (0-5/HPF) Urine WBC None seen (0-5/HPF) Ur Squamous Epith Cells None seen (0-5/HPF) Urine Bacteria None seen (None) Ur Culture Indicated? Cult not indicated Vol Urine Centrifuged 10ml (spun) 06/03/24 Range/Units 16:37 WBC (4.5-11.0) X10^3/uL RBC (4.0-5.2) X10^6/uL Hgb (12.0-16.0) g/dL Hct (36-46) % MCV (80-100) fL MCH (26-34) PG MCHC (30-36) % RDW (11.6-14.8) % Plt Count (150-400) X10^3/uL Neut % (Auto) (50-75) % Lymph % (Auto) (25-40) % Maverick % (Auto) (3-14) % Eos % (Auto) (2-4) % Baso % (Auto) (0-2) % Neut # (Auto) (0290-6305) /uL Lymph # (Auto) (3096-0716) /uL Maverick # (Auto) (0-900) /uL Eos # (Auto) (0-450) /uL Baso # (Auto) (0-100) /uL Sodium 131 L (137-145) mmol/L Potassium 3.8 D (3.4-5.1) mmol/L Chloride 102 (98-107) mmol/L Carbon Dioxide 27 (22-32) mmol/L BUN 4 L (7-17) mg/dL Creatinine 0.68 (0.52-1.04) mg/dL Estimated GFR > 60 (>60) mL/min BUN/Creatinine Ratio 5.9 L (6-22) Glucose 79 (70-100) mg/dL Calcium 8.5 (8.4-10.2) mg/dL Total Bilirubin (0.2-1.3) mg/dL AST (14-36) IU/L ALT (<35) IU/L Alkaline Phosphatase (38-126) U/L Total Protein (6.3-8.2) g/dL Albumin (3.5-5.0) g/dL Globulin (1.7-4.1) g/dL Albumin/Globulin Ratio (1.0-2.8) Lipase (23-300) U/L Urine RBC (0-5/HPF) Urine WBC (0-5/HPF) Ur Squamous Epith Cells (0-5/HPF) Urine Bacteria (None) Ur Culture Indicated? Vol Urine Centrifuged Urine Dip Bedside Urine Glucose Negative Bedside Urine Bilirubin - Negative Bedside Urine Ketone ++ 40 Urine Specific [place] 1.015 Bedside Urine Occult Blood - Negative Bedside Urine pH 6.0 Bedside Urine Protein - Negative Bedside Urine Urobilinogen - Negative Bedside Urine Nitrite - Negative Bedside Urine Leukocytes - Negative Esterase Discharge Plan Departure Patient Disposition: Home Clinical Impression: Constipation during in first trimester Activity Restrictions/Additional Instructions: *You have been diagnosed with [constipation in 1st trimester of ] *What to do: *Please continue to take your regular medications as directed. [ ] New medication prescriptions sent to your pharmacy: [ ] [ ] New medication written as a paper prescription [ ] No new medications given *Please follow up with your primary care provider in 2-3 days, call for an appointment. Let them know you were seen in the Emergency Department and that we ask that you be seen in follow up. We will electronically transmit a record of today's note if your PCP is in our . We gave you a dose of lactulose today in the emergency department. This is an osmotic laxative that can be used in if other measures have not been effective for constipation. We discussed possibly doing another enema today however you have tried 2 Fleet enemas at home that were unsuccessful and elected not to do this today in the emergency department lactulose is in the same general class of medications (osmotic laxative) as MiraLax. It does take about 24-48 hours before you typically will start producing stool after taking the lactulose. It is okay to do MiraLax as well for the next couple of days. Continue with things such as prune juice and apple juice, pushing fluids, fruits and vegetables and try to minimize intake of protein such as steak/meats. As these can slow down the system. If you are not getting results within about 48 hours or so and or you are having new or worsening abdominal pain or other symptoms of concern please make sure you get rechecked. I would also recommend you talk to your OB provider and let her know that you did take the lactulose and check in regarding how you are doing. You should also take a look at the multivitamin you are taking and see how much iron is in it. It may be a good idea to stop taking this for few days up to a week especially if it is more than about 20% of your daily recommended iron dose as iron can also cause constipation-though I would also talk to your OB provider about this as well and let them know. Initially your labs came back showing an elevated potassium level however we rechecked this and it was in the normal range so this likely was a error in the lab and not a true abnormality. Also we did an ultrasound today of your gallbladder because your bilirubin was slightly elevated and you had tenderness over her gallbladder today on exam. This was a normal ultrasound. No evidence of inflammation or gallstones. I would recommend talking to your OB provider/PCP about rechecking your labs down the line to check in on how your bilirubin lab level is doing. Your other liver enzymes look good today as did the lab that checks on your pancreas. I hope you get some results soon and are feeling better soon. *If you do not have a primary care provider please contact the [facility] Resource line at [phone]. They will ask some questions about your medical history and help get you set up with a doctor in the community. *Return to Emergency Department if you should have any new, worsening or concerning symptoms, such as [fever greater than 101 F, shaking chills, worsening pain, persistent vomiting or other bothersome symptoms] Prescriptions: No Action omeprazole 40 MG capsule,delayed release(DR/EC) 40 mg PO QDAY Qty: 90 3RF ondansetron 4 mg tablet,disintegrating 4 mg PO Q6H PRN (Reason: nausea and vomiting) Qty: 30 0RF promethazine 12.5 mg tablet 12.5 mg PO Q4-6H PRN (Reason: nausea and vomiting) Qty: 30 0RF labetalol 100 mg tablet 100 mg PO BID Qty: 60 0RF doxylamine-pyridoxine (vit B6) [Diclegis] 10-10 mg tablet,delayed release (DR/EC) 1 tab PO BID Qty: 30 3RF progesterone micronized 100 mg capsule 100 mg PO BID Qty: 60 6RF Rx Instructions: Twice a day after ovulation until next menses or 12 weeks duloxetine 60 mg capsule,delayed release(DR/EC) 60 mg PO DAILY aspirin 81 mg tablet,delayed release (DR/EC) 81 mg PO DAILY buspirone 15 mg tablet 15 mg PO BID levothyroxine 75 mcg tablet 75 mcg PO DAILY metformin 500 mg tablet 500 mg PO DAILY Referrals: Meslin,Randee S, [employer] [Primary Care Provider] - Stand Alone Forms: Patient Portal/API/Survey ED Sign-out <Nicole Hernandez DO - Last Filed: 06/19/24 04:18> Cosign ED Attending Cosignature Attestation: I was immediately available in the department for consultation. Case was discussed.
[2024-06-03 14:43] LABS: Alanine Aminotransferase 26 IU/L (<35); Albumin 4.7 g/dL (3.5-5.0); Albumin Globulin Ratio 1.2 (1.0-2.8); Alkaline Phosphatase 35 U/L (38-126); Aspartate Aminotransferase 84 IU/L (14-36); BUN Creatinine Ratio 8.3 (6-22); Bilirubin Total 1.5 mg/dL (0.2-1.3); Blood Urea Nitrogen 5 mg/dL (7-17); Calcium 9.1 mg/dL (8.4-10.2); Carbon Dioxide 24 mmol/L (22-32); Chloride 100 mmol/L (98-107); Estimated Glomerular Filt Rate > 60 mL/min (>60); Globulin 3.8 g/dL (1.7-4.1); Glucose 89 mg/dL (70-100); HEMOLYSIS 277 (0-50); Lipase 119 U/L (23-300); Potassium 5.8 mmol/L (3.4-5.1); Sodium 131 mmol/L (137-145); Total Protein 8.5 g/dL (6.3-8.2)
--- NOTE | 2024-06-03 15:08 | DI.US.S_ITS ---
PROCEDURE: US ABDOMEN LIMITED INDICATIONS: RUQ tenderness. elevated bilirubin 9wk preg TECHNIQUE: Real-time scanning was performed of the abdominal and retroperitoneal organs, with image documentation. COMPARISON: None. FINDINGS: Liver: Liver is normal in size and grossly homogeneous in echotexture. Gallbladder: No gallstones. No wall thickening. No pericholecystic edema. Negative sonographic Jay's sign. Biliary ducts: Intrahepatic bile ducts are non-dilated. Extrahepatic bile duct caliber measures 4 mm. Normal is 6-7 mm or less in diameter, or 10 mm or less post-cholecystectomy. Pancreas: Visualized portions of the pancreas are sonographically normal. Miscellaneous: No free abdominal fluid. An intrauterine gestation with a heart rate of 160 beats per minute is present. IMPRESSION: No evidence of acute cholecystitis. Jaimes intrauterine gestation with heart rate of 160 bpm. Dictated by: Spring Galindo M.D. on 06/03/2024 at 15:01 Approved by: Spring Galindo M.D. on 06/03/2024 at 15:04
[2024-06-03] MEDS: SODIUM CHLORIDE 0.9% 1,000 ML 1000 ML IV (15:12)
[2024-06-03 16:08] LABS: Bacteria Urine None Seen; RBC Urine None Seen (0-5/HPF); Squamous Epithelial Cell Urine None Seen (0-5/HPF); Urine Volume 10mL (spun); WBC Urine None Seen (0-5/HPF)
[2024-06-03 16:09] LABS: Culture Indicated Urine Cult Not Indicated
[2024-06-03] MEDS: ACETAMINOPHEN 325 MG TABLET 650 MG PO (16:56)
[2024-06-03 17:00] LABS: BUN Creatinine Ratio 5.9 (6-22); Blood Urea Nitrogen 4 mg/dL (7-17); Calcium 8.5 mg/dL (8.4-10.2); Carbon Dioxide 27 mmol/L (22-32); Chloride 102 mmol/L (98-107); Estimated Glomerular Filt Rate > 60 mL/min (>60); Glucose 79 mg/dL (70-100); HEMOLYSIS < 15 (0-50); Potassium 3.8 mmol/L (3.4-5.1); Sodium 131 mmol/L (137-145)
[2024-06-03] MEDS: LACTULOSE 20 GM/30 ML SOLUTION PO (17:48)
[2024-06-03 18:01] VITALS: BP 155/105; PULSE 98; RESP 16; TEMP 36.4; O2SAT 100
== END 2024-06-03 18:04 | disposition home or self-care (01) ==
PROVIDERS: Emergency Medicine; Emergency Provider Student in an Organized Health Care Education/Training Program; PCP Registered Nurse
DX: O99.611 Diseases of the digestive system complicating pregnancy, first trimester (principal); K59.00 Constipation, unspecified; Z3A.09 9 weeks gestation of pregnancy
CPT/HCPCS: 36415; 76705; 80048; 80053; 81003; 81015; 83690; 85025; 96360; 96361; 99284

== ENCOUNTER → 2024-06-06 16:49 | Outpatient (ROUT) | payer OTHER, SELFPAY ==
[2024-06-06 17:40] LABS: Influenza A - CEPHEID Flu A NEGATIVE (NEGATIVE); Influenza B - CEPHEID Flu B NEGATIVE (NEGATIVE)
[2024-06-06 17:45] LABS: COVID-19 CEPHEID 4-PLEX PCR Negative (Negative)
== END ==
PROVIDERS: PCP Registered Nurse; Visit Provider Registered Nurse
DX: J02.9 Acute pharyngitis, unspecified (principal); Z20.822 Contact with and (suspected) exposure to COVID-19
CPT/HCPCS: 0240U

== ENCOUNTER → 2024-06-29 15:42 | Outpatient (CLI) | payer OTHER, SELFPAY ==
[2024-06-29 16:32] LABS: Add Manual Diff / Slide Review NO; Basophils Absolute Auto 100 /uL (0-100); Basophils Percent Auto 0.5 % (0-2); Eosinophils Absolute Auto 100 /uL (0-450); Eosinophils Percent Auto 0.7 % (2-4); Hematocrit 34.9 % (36-46); Hemoglobin 10.9 g/dL (12.0-16.0); Lymphocytes Absolute Auto 1900 /uL (1100-4500); Lymphocytes Percent Auto 14.9 % (25-40); Mean Corpuscular HGB Conc 31.3 % (30-36); Mean Corpuscular Hemoglobin 22.7 PG (26-34); Mean Corpuscular Volume 72.3 fL (80-100); Monocytes Absolute Auto 700 /uL (0-900); Monocytes Percent Auto 5.4 % (3-14); Neutrophils Absolute Auto 9900 /uL (1500-7000); Neutrophils Percent Auto 78.5 % (50-75); Platelet Count 510 X10^3/uL (150-400); Red Blood Cell Count 4.82 X10^6/uL (4.0-5.2); White Blood Cell Count 12.7 X10^3/uL (4.5-11.0)
[2024-06-29 16:42] LABS: Hemoglobin A1C% w Est Avg Glu 5.4 % (4.0-6.0)
[2024-06-29 17:00] LABS: Natera Collection Specimen Collected
[2024-06-29 17:28] LABS: Hepatitis B Surface Antigen NEGATIVE s/c (NEGATIVE); Rubella Antibody IgG 35.8 IU/mL (>15)
[2024-06-29 17:43] LABS: HIV 1 & 2 Ab/Ag 4th Gen Combo NEGATIVE (NEGATIVE); Hep C Virus Ab w/Reflex Quant NEGATIVE s/c (NEGATIVE)
[2024-06-30 03:09] LABS: RPR Screen Non Reactive (Non Reactive)
[2024-06-30 11:41] LABS: Varicella IgG Antibody Reactive (Non Reactive)
== END ==
PROVIDERS: PCP Registered Nurse; Referring Provider Student in an Organized Health Care Education/Training Program; Visit Provider Student in an Organized Health Care Education/Training Program
DX: O09.511 Supervision of elderly primigravida, first trimester (principal); E11.9 Type 2 diabetes mellitus without complications; E28.2 Polycystic ovarian syndrome; Z36.0 Encounter for antenatal screening for chromosomal anomalies
CPT/HCPCS: 36415; 80055; 83036; 86787; 86803; 87389